=== PATIENT | female | born 1965 | race American Indian/Alaskan Native ===

== ENCOUNTER 2017-09-22 08:33 | Emergency (ER) | payer BC ==
--- NOTE | 2017-09-22 10:17 | Emergency Department Report ---
ED General Adult HPI - General Chief complaint: Dizziness Stated complaint: HTN/NAUSEA/DIZZINESS Time Seen by Provider: 09/22/17 10:16 Source: patient Mode of arrival: Ambulatory Limitations: No Limitations - History of Present Illness Initial comments: Patient states for the last several days she has been experiencing generalized weakness. 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 She does not complain of vertigo. Her weakness has largely been on activity. She states that she has been having vomiting and diarrhea or low last 5 days. She's had no signs of GI bleeding. She thinks she may have had a low-grade fever. She complains of a cough that sometimes is associated with green sputum. She did not measure her temperature. She denies headache and local neurological change. She denies any hospitalizations for serious infection. She is a type II diabetic. She does not complain of pain. -: days(s) Consistency: intermittent Improves with: none Worsens with: none Associated Symptoms: cough, nausea/vomiting (and diarrhea), weakness Treatments Prior to Arrival: none - Related Data Previous Rx's Medication Instructions Recorded Last Taken Type Cefuroxime [Ceftin] 250 mg PO Q12H #14 tablet 09/22/17 Unknown Rx Ondansetron [Zofran Odt] 4 mg PO Q6H PRN #7 tab.rapdis 09/22/17 Unknown Rx Allergies Allergy/AdvReac Type Severity Reaction Status Date / Time aspirin AdvReac Hives Verified 09/22/17 08:48 ED Review of Systems ROS: Stated complaint: HTN/NAUSEA/DIZZINESS Other details as noted in HPI Constitutional: denies: chills, fever Eyes: denies: eye pain, eye discharge, vision change ENT: denies: ear pain, throat pain Respiratory: denies: cough, shortness of breath, wheezing Cardiovascular: denies: chest pain, palpitations Endocrine: no symptoms reported Gastrointestinal: nausea, vomiting, diarrhea. denies: abdominal pain Genitourinary: denies: urgency, dysuria, discharge Musculoskeletal: denies: back pain, joint swelling, arthralgia Skin: denies: rash, lesions Neurological: denies: headache, weakness, paresthesias Psychiatric: denies: anxiety, depression Hematological/Lymphatic: denies: easy bleeding, easy bruising ED Past Medical Hx - Past Medical History Hx Dementia: Yes - Surgical History Past Surgical History?: Yes Additional Surgical History: - Social History Smoking Status: Never Smoker Substance Use Type: Alcohol - Medications Home Medications: Home Medications Medication Instructions Recorded Confirmed Last Taken Type Cefuroxime [Ceftin] 250 mg PO Q12H #14 tablet 09/22/17 Unknown Rx Ondansetron [Zofran Odt] 4 mg PO Q6H PRN #7 tab.rapdis 09/22/17 Unknown Rx ED Physical Exam - General Limitations: No Limitations General appearance: alert, in no apparent distress, other (appears slightly volume depleted) - Head Head exam: Present: atraumatic, normocephalic - Eye Eye exam: Present: normal appearance. Absent: scleral icterus - ENT ENT exam: Present: normal exam, mucous membranes moist - Neck Neck exam: Present: normal inspection. Absent: tenderness, meningismus - Respiratory Respiratory exam: Present: normal lung sounds bilaterally. Absent: respiratory distress - Cardiovascular Cardiovascular Exam: Present: regular rate, normal rhythm. Absent: systolic murmur, diastolic murmur, rubs, gallop - GI/Abdominal GI/Abdominal exam: Present: soft, normal bowel sounds. Absent: distended, tenderness, guarding, rebound, rigid - Extremities Exam Extremities exam: Present: normal inspection - Back Exam Back exam: Present: normal inspection - Neurological Exam Neurological exam: Present: alert, oriented X3, CN II-XII intact. Absent: motor sensory deficit - Psychiatric Psychiatric exam: Present: normal affect, normal mood - Skin Skin exam: Present: warm, dry, intact, normal color. Absent: rash ED Course Vital Signs 09/22/17 09/22/17 09/22/17 08:40 09:04 09:30 Temperature 97.9 F Pulse Rate 88 82 Respiratory 16 22 Rate Blood Pressure 129/99 139/95 133/92 O2 Sat by Pulse 98 Oximetry 09/22/17 09/22/17 09/22/17 10:00 10:30 11:00 Temperature Pulse Rate 78 84 81 Respiratory 14 19 12 Rate Blood Pressure 123/86 140/97 140/97 O2 Sat by Pulse 99 97 100 Oximetry 09/22/17 11:30 Temperature Pulse Rate 78 Respiratory 16 Rate Blood Pressure 123/80 O2 Sat by Pulse 97 Oximetry - Reevaluation(s) Reevaluation #1: Patient's symptoms have improved with IV fluid. She is appropriate for outpatient follow-up. 09/22/17 13:36 ED Medical Decision Making - Lab Data Result diagrams: 09/22/17 10:24 09/22/17 10:24 Laboratory Results - last 24 hr 09/22/17 09/22/17 09/22/17 10:24 10:24 10:24 WBC 8.0 RBC 4.25 Hgb 13.4 Hct 39.2 MCV 92 MCH 32 MCHC 34 RDW 12.8 L Plt Count 381 Lymph % (Auto) 19.3 Harris % (Auto) 6.0 Eos % (Auto) 0.0 Baso % (Auto) 0.3 Lymph # 1.5 Harris # 0.5 Eos # 0.0 Baso # 0.0 Seg Neutrophils % 74.4 H Seg Neutrophils # 6.0 VBG pH Sodium 140 Potassium 4.4 Chloride 99.8 Carbon Dioxide 26 Anion Gap 19 BUN 10 Creatinine 0.6 L Estimated GFR > 60 BUN/Creatinine Ratio 17 Glucose 278 H Calcium 9.1 Magnesium 1.70 Total Bilirubin 0.30 Direct Bilirubin < 0.2 AST 11 ALT 13 Alkaline Phosphatase 114 Total Protein 6.9 Albumin 3.8 L Albumin/Globulin Ratio 1.2 TSH 09/22/17 09/22/17 10:24 10:57 WBC RBC Hgb Hct MCV MCH MCHC RDW Plt Count Lymph % (Auto) Harris % (Auto) Eos % (Auto) Baso % (Auto) Lymph # Harris # Eos # Baso # Seg Neutrophils % Seg Neutrophils # VBG pH 7.384 Sodium Potassium Chloride Carbon Dioxide Anion Gap BUN Creatinine Estimated GFR BUN/Creatinine Ratio Glucose Calcium Magnesium Total Bilirubin Direct Bilirubin AST ALT Alkaline Phosphatase Total Protein Albumin Albumin/Globulin Ratio TSH 0.496 Laboratory Results - last 24 hr 09/22/17 09/22/17 09/22/17 10:24 10:24 10:24 WBC 8.0 RBC 4.25 Hgb 13.4 Hct 39.2 MCV 92 MCH 32 MCHC 34 RDW 12.8 L Plt Count 381 Lymph % (Auto) 19.3 Harris % (Auto) 6.0 Eos % (Auto) 0.0 Baso % (Auto) 0.3 Lymph # 1.5 Harris # 0.5 Eos # 0.0 Baso # 0.0 Seg Neutrophils % 74.4 H Seg Neutrophils # 6.0 VBG pH Sodium 140 Potassium 4.4 Chloride 99.8 Carbon Dioxide 26 Anion Gap 19 BUN 10 Creatinine 0.6 L Estimated GFR > 60 BUN/Creatinine Ratio 17 Glucose 278 H Ketones Quantitative Calcium 9.1 Magnesium 1.70 Total Bilirubin 0.30 Direct Bilirubin < 0.2 AST 11 ALT 13 Alkaline Phosphatase 114 Total Protein 6.9 Albumin 3.8 L Albumin/Globulin Ratio 1.2 TSH 09/22/17 09/22/17 09/22/17 10:24 10:57 10:57 WBC RBC Hgb Hct MCV MCH MCHC RDW Plt Count Lymph % (Auto) Harris % (Auto) Eos % (Auto) Baso % (Auto) Lymph # Harris # Eos # Baso # Seg Neutrophils % Seg Neutrophils # VBG pH 7.384 Sodium Potassium Chloride Carbon Dioxide Anion Gap BUN Creatinine Estimated GFR BUN/Creatinine Ratio Glucose Ketones Quantitative Negative Calcium Magnesium Total Bilirubin Direct Bilirubin AST ALT Alkaline Phosphatase Total Protein Albumin Albumin/Globulin Ratio TSH 0.496 Laboratory Results - last 24 hr 09/22/17 09/22/17 09/22/17 10:24 10:24 10:24 WBC 8.0 RBC 4.25 Hgb 13.4 Hct 39.2 MCV 92 MCH 32 MCHC 34 RDW 12.8 L Plt Count 381 Lymph % (Auto) 19.3 Harris % (Auto) 6.0 Eos % (Auto) 0.0 Baso % (Auto) 0.3 Lymph # 1.5 Harris # 0.5 Eos # 0.0 Baso # 0.0 Seg Neutrophils % 74.4 H Seg Neutrophils # 6.0 VBG pH Sodium 140 Potassium 4.4 Chloride 99.8 Carbon Dioxide 26 Anion Gap 19 BUN 10 Creatinine 0.6 L Estimated GFR > 60 BUN/Creatinine Ratio 17 Glucose 278 H Ketones Quantitative Calcium 9.1 Magnesium 1.70 Total Bilirubin 0.30 Direct Bilirubin < 0.2 AST 11 ALT 13 Alkaline Phosphatase 114 Total Protein 6.9 Albumin 3.8 L Albumin/Globulin Ratio 1.2 TSH Urine RBC (Auto) U Epithel Cells (Auto) 09/22/17 09/22/17 09/22/17 10:24 10:57 10:57 WBC RBC Hgb Hct MCV MCH MCHC RDW Plt Count Lymph % (Auto) Harris % (Auto) Eos % (Auto) Baso % (Auto) Lymph # Harris # Eos # Baso # Seg Neutrophils % Seg Neutrophils # VBG pH 7.384 Sodium Potassium Chloride Carbon Dioxide Anion Gap BUN Creatinine Estimated GFR BUN/Creatinine Ratio Glucose Ketones Quantitative Negative Calcium Magnesium Total Bilirubin Direct Bilirubin AST ALT Alkaline Phosphatase Total Protein Albumin Albumin/Globulin Ratio TSH 0.496 Urine RBC (Auto) U Epithel Cells (Auto) 09/22/17 12:17 WBC RBC Hgb Hct MCV MCH MCHC RDW Plt Count Lymph % (Auto) Harris % (Auto) Eos % (Auto) Baso % (Auto) Lymph # Harris # Eos # Baso # Seg Neutrophils % Seg Neutrophils # VBG pH Sodium Potassium Chloride Carbon Dioxide Anion Gap BUN Creatinine Estimated GFR BUN/Creatinine Ratio Glucose Ketones Quantitative Calcium Magnesium Total Bilirubin Direct Bilirubin AST ALT Alkaline Phosphatase Total Protein Albumin Albumin/Globulin Ratio TSH Urine RBC (Auto) 2.0 U Epithel Cells (Auto) 6.0 Laboratory Results - last 24 hr 09/22/17 09/22/17 09/22/17 10:24 10:24 10:24 WBC 8.0 RBC 4.25 Hgb 13.4 Hct 39.2 MCV 92 MCH 32 MCHC 34 RDW 12.8 L Plt Count 381 Lymph % (Auto) 19.3 Harris % (Auto) 6.0 Eos % (Auto) 0.0 Baso % (Auto) 0.3 Lymph # 1.5 Harris # 0.5 Eos # 0.0 Baso # 0.0 Seg Neutrophils % 74.4 H Seg Neutrophils # 6.0 VBG pH Sodium 140 Potassium 4.4 Chloride 99.8 Carbon Dioxide 26 Anion Gap 19 BUN 10 Creatinine 0.6 L Estimated GFR > 60 BUN/Creatinine Ratio 17 Glucose 278 H Ketones Quantitative Calcium 9.1 Magnesium 1.70 Total Bilirubin 0.30 Direct Bilirubin < 0.2 AST 11 ALT 13 Alkaline Phosphatase 114 Total Protein 6.9 Albumin 3.8 L Albumin/Globulin Ratio 1.2 TSH Urine Color Urine Turbidity Urine pH Ur Specific Red Level Urine Protein Urine Glucose (UA) Urine Ketones Urine Blood Urine Nitrite Ur Reducing Substances Urine Bilirubin Urine Ictotest Urine Urobilinogen Ur Leukocyte Esterase Urine WBC (Auto) Urine RBC (Auto) U Epithel Cells (Auto) Urine Bacteria (Auto) Urine Mucus 09/22/17 09/22/17 09/22/17 10:24 10:57 10:57 WBC RBC Hgb Hct MCV MCH MCHC RDW Plt Count Lymph % (Auto) Harris % (Auto) Eos % (Auto) Baso % (Auto) Lymph # Harris # Eos # Baso # Seg Neutrophils % Seg Neutrophils # VBG pH 7.384 Sodium Potassium Chloride Carbon Dioxide Anion Gap BUN Creatinine Estimated GFR BUN/Creatinine Ratio Glucose Ketones Quantitative Negative Calcium Magnesium Total Bilirubin Direct Bilirubin AST ALT Alkaline Phosphatase Total Protein Albumin Albumin/Globulin Ratio TSH 0.496 Urine Color Urine Turbidity Urine pH Ur Specific Red Level Urine Protein Urine Glucose (UA) Urine Ketones Urine Blood Urine Nitrite Ur Reducing Substances Urine Bilirubin Urine Ictotest Urine Urobilinogen Ur Leukocyte Esterase Urine WBC (Auto) Urine RBC (Auto) U Epithel Cells (Auto) Urine Bacteria (Auto) Urine Mucus 09/22/17 12:17 WBC RBC Hgb Hct MCV MCH MCHC RDW Plt Count Lymph % (Auto) Harris % (Auto) Eos % (Auto) Baso % (Auto) Lymph # Harris # Eos # Baso # Seg Neutrophils % Seg Neutrophils # VBG pH Sodium Potassium Chloride Carbon Dioxide Anion Gap BUN Creatinine Estimated GFR BUN/Creatinine Ratio Glucose Ketones Quantitative Calcium Magnesium Total Bilirubin Direct Bilirubin AST ALT Alkaline Phosphatase Total Protein Albumin Albumin/Globulin Ratio TSH Urine Color Yellow Urine Turbidity Hazy Urine pH 6.0 Ur Specific Red Level 1.032 H Urine Protein <15 mg/dl Urine Glucose (UA) >=500 Urine Ketones 80 Urine Blood Neg Urine Nitrite Pos Ur Reducing Substances Not Reportable Urine Bilirubin Neg Urine Ictotest Not Reportable Urine Urobilinogen < 2.0 Ur Leukocyte Esterase Tr Urine WBC (Auto) 20.0 H Urine RBC (Auto) 2.0 U Epithel Cells (Auto) 6.0 Urine Bacteria (Auto) 1+ Urine Mucus Few - EKG Data -: EKG Interpreted by Me EKG shows normal: sinus rhythm, axis, intervals, QRS complexes, ST-T waves Rate: normal - EKG Data Interpretation: normal EKG - Radiology Data interpreted by me: Chest x-ray no acute process Critical care attestation.: If time is entered above; I have spent that time in minutes in the direct care of this critically ill patient, excluding procedure time. ED Disposition Clinical Impression: Viral illness, Volume depletion UTI (urinary tract infection) Qualifiers: Urinary tract infection type: acute cystitis Hematuria presence: without hematuria Qualified Code(s): N30.00 - Acute cystitis without hematuria Hyperglycemia due to type 2 diabetes mellitus Qualifiers: Diabetes mellitus usp insulin use: without usp use Qualified Code(s ): E11.65 - Type 2 diabetes mellitus with hyperglycemia Disposition: DC- TO HOME OR SELFCARE Is pt being admited?: No Does the pt Need Aspirin: No Condition: Stable Instructions: Diabetes Mellitus Type 2 in Adults (ED), Urinary Tract Infection in Women (ED), Viral Syndrome (ED) Additional Instructions: Follow-up with primary care physician Rx as directed. Return if any fever vomiting or if she is feeling more ill. Following sugars carefully. Prescriptions: Cefuroxime [Ceftin] 250 mg PO Q12H #14 tablet Ondansetron [Zofran Odt] 4 mg PO Q6H PRN #7 tab.rapdis PRN Reason: Nausea Referrals: GT GARDNER MD [Primary Care Provider] - 2-3 Days primary, care [Other] - 2-3 Days Time of Disposition: 13:36
[2017-09-22 10:39] LABS: Basophils % (Auto) 0.3 % (0.0-1.8); Hematocrit 39.2 % (30.3-42.9); Hemoglobin 13.4 gm/dl (10.1-14.3); Lymphocytes # (Auto) 1.5 K/mm3 (1.2-5.4); Lymphocytes % (Auto) 19.3 % (13.4-35.0); Mean Corpuscular HGB Conc 34 % (30-34); Mean Corpuscular Hemoglobin 32 pg (28-32); Mean Corpuscular Volume 92 fl (79-97); Monocytes # (Auto) 0.5 K/mm3 (0.0-0.8); Platelet Count 381 K/mm3 (140-440); Red Blood Count 4.25 M/mm3 (3.65-5.03); Red Cell Distribution Width 12.8 % (13.2-15.2)
[2017-09-22] MEDS ORDERED: ZOFRAN IV ONE (10:46)
[2017-09-22] MEDS ORDERED: NACL 0.9% 1000 ML 1,000 ML IV ONE (10:46)
[2017-09-22 10:55] LABS: BUN/Creatinine Ratio 17; Blood Urea Nitrogen 10 mg/dL (7-17); Calcium 9.1 mg/dL (8.4-10.2); Hemolysis Index 2
--- NOTE | 2017-09-22 11:11 | XRay Report ---
Single view chest: History: Cough. Findings: Normal cardiomediastinal silhouette. Trachea is midline. No consolidation, pneumothorax or pleural effusion. Impression: No acute cardiopulmonary findings.
[2017-09-22 11:23] LABS: Alanine Aminotransferase 13 units/L (7-56); Albumin 3.8 g/dL (3.9-5)
[2017-09-22 11:24] LABS: Bilirubin,Direct < 0.2 mg/dL (0-0.2)
[2017-09-22 12:05] VITALS: BP 123/80
[2017-09-22 12:51] LABS: Bacteria,Urine 1+ /HPF (Negative); Mucus,Urine FEW /HPF
[2017-09-22 13:06] LABS: Bilirubin,Urine NEG (Negative); Blood,Urine NEG (Negative); Color,Urine Yellow (Yellow); Nitrite,Urine POS (Negative); Protein,Urine <15 mg/dL mg/dL (Negative); Urobilinogen,Urine < 2.0 mg/dL (<2.0)
== END 2017-09-22 13:55 | disposition home or self-care (01) ==
LOC: ED 08:33
DX: N30.00 Acute cystitis without hematuria (principal); E11.65 Type 2 diabetes mellitus with hyperglycemia; B33.8 Other specified viral diseases; E86.9 Volume depletion, unspecified; F03.90 Unspecified dementia, unspecified severity, without behavioral disturbance, psychotic disturbance, mood disturbance, and anxiety; Z88.6 Allergy status to analgesic agent
CPT/HCPCS: 36415; 71045; 80048; 80074; 81001; 82010; 82805; 83735; 84443; 85025; 87086; 93005; 93010; 96361; 96374; 99284; J2405; J7030; 87076; 87186